=== PATIENT | male | born 1945 ===

== ENCOUNTER 2020-11-15 11:27 | Inpatient (IN) | payer OTHER ==
[~2020-11-15] VITALS: Ht 177.8 cm; Wt 75.4 kg
[~2020-11-15 11:27] MED LIST: ASPI81CH PO; Aspir 8181 MG PO; B-100 Complex1 EACH; B-121000 MC3 PO; CLOP75 PO; FOLI1 PO; HYDR1TAB94 PO; IBUP800 PO; MAGOXI400 PO; Metoprolol Tart25 MG PO; PRAV20 PO
[2020-11-15 12:07] LABS: BASOPHILS ABSOLUTE AUTO 0.04 K/mm3 (0.00-0.23); BASOPHILS PERCENT AUTO 0 % (0-2); EOSINOPHILS PERCENT AUTO 1 % (0-6); Hemoglobin 13.4 g/dL (13.5-17.5); IMMATURE GRAN ABSOLUTE AUTO 0.04 K/mm3 (0.00-0.10); IMMATURE GRAN PERCENT AUTO 0 % (0-1); LYMPHOCYTES ABSOLUTE AUTO 0.91 K/mm3 (0.84-5.20); LYMPHOCYTES PERCENT AUTO 10 % (21-46); MONOCYTES PERCENT AUTO 11 % (4-13); Mean Corpuscular HGB Conc 32.7 g/dL (31.5-36.5); Mean Corpuscular Volume 92 fL (80-100); NEUTROPHILS ABSOLUTE AUTO 7.42 K/mm3 (1.96-9.15); NEUTROPHILS PERCENT AUTO 78 % (41-73); Platelet Count 194 K/mm3 (150-400); RDW Coefficient Variation 13.5 % (11.7-14.2); RDW Standard Deviation 45.8 fL (35.1-46.3); Red Blood Cell Count 4.46 M/mm3 (4.30-5.90); White Blood Cell Count 9.51 K/mm3 (4.00-11.30)
[2020-11-15 12:40] LABS: Albumin, Blood 3.4 g/dL (3.4-5.0); Albumin/Globulin Ratio 0.8 (0.8-1.8); Bilirubin, Total 0.9 mg/dL (0.1-1.0); Bun/Creatinine Ratio 12.6 (12.0-20.0); Creatinine, Blood 1.9 mg/dL (0.60-1.20); Globulin, Blood 4.3 g/dL (2.2-4.0); Total Protein, Blood 7.7 g/dL (6.4-8.2)
[2020-11-15 12:47] LABS: Troponin I 1.89 ng/mL (0.000-0.040)
[2020-11-15] MEDS ORDERED: FOLI1 PO (13:07)
[2020-11-15] MEDS ORDERED: PRAVASTATIN SOD20 MG PO (13:07)
[2020-11-15] MEDS ORDERED: MAGNESIUM OXID500 MG PO (13:20)
[2020-11-15] MEDS ORDERED: ZYRTEC10 M2 PO (13:20)
[2020-11-15] MEDS ORDERED: CALCIUM 500 MG1 EAC2 PO (13:20)
[2020-11-15] MEDS ORDERED: OMEGA-3 FISH O1 EAC6 PO (13:21)
[2020-11-15 15:44] LABS: SARS-Cov-2 (COVID-19) PCR, MMC NEGATIVE (NEGATIVE)
[2020-11-15 16:19] LABS: International Normalized Ratio 1.11; Prothrombin Time Results 11.9 Sec (9.7-11.5)
--- NOTE | 2020-11-15 18:15 | NUR ---
SHIFT SUMMARY; ER ADMIT, TO ICU VIA GURNEY, TRANSFERS FROM GURNEY TO BED WITHOUT DIFFICULTY. DENIES CHEST PAIN OR SOB. A/A/OX4. NITRO STARTED PER EMAR AT 20MCG/MIN. NS INFUSING AT 100ML/HR. SPOUSE AT BEDSIDE. NPO PENDING ANGIO. VSS, WILL CONTINUE TO MONITOR UNTIL CHANGE OF SHIFT.
--- NOTE | 2020-11-15 20:20 | NUR ---
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 PT IS NOTED TO HAVE TR BAND IN PLACE TO RIGHT RADIAL ACCESS SITE WHICH IS STABLE WITHOUT EVIDENCE OF BLEEDING AT THIS TIME, PT DENIES NUMBNESS/TINGLING TO FINGERS AND THUMB OF RIGHT HAND, SKIN IS PINK, COOL, AND DRY, CAP REFILL IS 3 SECONDS, BIOX PROBE IN PLACE TO FINGERS OF RIGHT HAND, PLETH PRESENT. PT DENIES CURRENT CP/PRESSURE, DENIES SOB/DYSPNEA AT REST, DENIES N/V, ADMITS TO 9/10 LOW BACK PAIN WHICH HE STATES IS NEAR BASELINE FOR HIM AND PRESENT FOR YEARS. SINUS TACH NOTED ON MONITOR WITH OCCASIONAL PVCS, RATE 110S, PRESSURES ARE MAINTAINING WITH NITRO GTT AT 15 MCG/MIN, PULSES ARE FULL X 4 EXTREMITIES, NO EDEMA IS NOTED. LUNGS CLEAR THROUGHOUT, SATS LOW TO MID 90S ON ROOM AIR, NO VISIBLE INCREASED WORK OF BREATHING AT REST, SPEAKING IN FULL SENTENCES. ACTIVE BOWEL TONES X 4 QUADRANTS, PT STATES THAT HE IS QUITE HUNGRY HE HASN'T EATEN SINCE 1700 YESTERDAY, NO GRIMACING WITH PALPATION, ABD SOFT. NS INFUSING AT 200 ML/HR PER VERBAL ORDER FROM DR LRARY. SINGLE FIELD START IV ACCESS IS NOTED TO LEFT AC, SITE WNL, INFUSING NS AT NITRO GTT AT THIS TIME, DRESSING CDI, WILL PLAN TO START SECOND IV WITH NEXT LAB DRAW.
--- NOTE | 2020-11-15 20:30 | NUR ---
DR LARRY CALLED ICU TO ADVISE THAT PLAN IS TO TRANSFER PT TO [facility], ACCEPTING DR RICHARD SANCHEZ. WILL CALL [facility] FOR TRANSFER IMAGES, PRECISION GRINDER NOTIFIED OF PLAN. DR LARRY STATES THAT HE PLACED ORDERS TO DC NITRO GTT AND ADMINISTER IMDUR, OK FOR CARDIAC DIET TONIGHT.
[2020-11-15 21:39] LABS: International Normalized Ratio 1.24; Prothrombin Time Results 13.2 Sec (9.7-11.5)
--- NOTE | 2020-11-15 22:59 | NUR ---
TR BAND DEFLATION TR BAND DEFLATION STARTED AT 2207, 1 ML AIR REMOVED EVERY 5 MINUTES, DEFLATION IS COMPLETE AND SITE REMAINS STABLE AT THIS TIME, WILL CONTINUE FREQUENT MONITORING FOR EVIDENCE OF BLEEDING. SMALL HEMATOMA NOTED AT PUNCTURE SITE TO RIGHT AC HAS SMALL HEMATOMA, REMAINS WITHIN MARKED LINE SINCE ARRIVAL. WILL CONT TO MONITOR. TR BAND PRECAUTIONS FREQUENTLY REINFORCED WITH PT, ARM BOARD REMAINS IN PLACE.
[2020-11-15 23:29] LABS: Source, Urine Clean Catch
[2020-11-15 23:32] LABS: Bilirubin, Urine Neg (Neg); Blood, Urine 1+ (Neg); Glucose Qualitative, Urine Neg (Neg); Ketones, Urine 1+ (Neg); Leukocyte Esterase, Urine Neg (Neg); Nitrite, Urine Neg (Neg); Protein, Urine 2+ (Neg); Urobilinogen, Urine NORM (Normal); pH, Urine 6.5 (5.0-8.0)
[2020-11-15 23:33] LABS: Appearance, Urine Clear (Clear); Color, Urine Yellow (P-Yellow)
[2020-11-15 23:40] LABS: Bacteria Few /hpf; Red Blood Cells, Urine 0-2 /hpf (0-2); Squamous Epithelial Cells Not Seen /hpf (Few)
--- NOTE | 2020-11-16 00:24 | NUR ---
TR BAND REMOVAL RIGHT RADIAL ACCESS SITE CONTINUES STABLE, TR BAND REMOVED, WRIST CLEANSED WITH CHLORAPREP, AIR DRIED, AND TEGADERM DRESSING APPLIED. SITE NOTED TO HAVE SMALL AMOUNT OF CAPILLARY OOZING, NO SWELLING, PAIN, OR HEMATOMA FORMATION NOTED, TEGADERM DRESSING REMOVED, LIGHT PRESSURE HELD WITH STERILE 4X4 GAUZE X 50 SECONDS, CAPILLARY OOZING IS NOTED TO HAVE RESOLVED, TEGADERM DRESSING REPLACED, WILL CONT TO MONITOR CLOSELY.
[2020-11-16 06:09] LABS: BASOPHILS ABSOLUTE AUTO 0.04 K/mm3 (0.00-0.23); BASOPHILS PERCENT AUTO 1 % (0-2); EOSINOPHILS ABSOLUTE AUTO 0.29 K/mm3 (0.00-0.68); EOSINOPHILS PERCENT AUTO 3 % (0-6); Hematocrit 37.3 % (37.0-53.0); Hemoglobin 12.3 g/dL (13.5-17.5); IMMATURE GRAN ABSOLUTE AUTO 0.03 K/mm3 (0.00-0.10); IMMATURE GRAN PERCENT AUTO 0 % (0-1); LYMPHOCYTES ABSOLUTE AUTO 0.86 K/mm3 (0.84-5.20); LYMPHOCYTES PERCENT AUTO 10 % (21-46); MONOCYTES ABSOLUTE AUTO 0.76 K/mm3 (0.16-1.47); MONOCYTES PERCENT AUTO 9 % (4-13); Mean Corpuscular HGB 30.2 pg (26.0-34.0); Mean Corpuscular Volume 92 fL (80-100); Mean Platelet Volume 12.6 fL (9.1-12.4); NEUTROPHILS ABSOLUTE AUTO 6.43 K/mm3 (1.96-9.15); NEUTROPHILS PERCENT AUTO 77 % (41-73); Platelet Count 163 K/mm3 (150-400); RDW Coefficient Variation 13.4 % (11.7-14.2); RDW Standard Deviation 45.7 fL (35.1-46.3); Red Blood Cell Count 4.07 M/mm3 (4.30-5.90); White Blood Cell Count 8.41 K/mm3 (4.00-11.30)
--- NOTE | 2020-11-16 06:24 | NUR ---
PT RESTS QUIETLY THROUGHOUT SHIFT, CONTINUES TO DENY CP/PRESSURE, ADMITS TO SHORTNESS OF BREATH WITH INCREASED ACTIVITY ONLY. RIGHT RADIAL ACCESS SITE HAS REMAINED STABLE THROUGHOUT SHIFT, INITIALLY A SMALL AMOUNT OF CAPILLARY OOZING WAS NOTED UPON DISCONTINUATION OF TR BAND HOWEVER THIS RESOVED WITH 50 SECONDS OF PRESSURE HELD WITH STERILE 4X4 GAUZE. THERE IS A SMALL AREA OF BRUISING TO RIGHT AC THAT HAS BEEN PRESENT SINCE PT'S RETURN FROM [facility], THIS HAS REMAINED WITHIN THE MARKED OUTLINE ON THE CLEAR TEGADERM DRESSING. PT PRESSURE MAINTAINTS STABLE THROUGHOUT NOC, CONTINUES IN SINUS RHYTHM WITH OCCASIONAL PVCS, RATE HAS IMPROVED FROM 110S TO 90S AT THIS TIME. CONTINUES TO MAINTAIN SATS ON ROOM AIR AND SPEAK IN FULL SENTENCES WITHOUT VISIBLE INCREASED WORK OF BREATHING, RARE COUGH HAS BEEN NOTED. CONTINUE TO AWAIT TRANSFER TO [facility]
[2020-11-16 06:29] LABS: Alanine Aminotransfer (ALT/SGP 24 U/L (12-78); Albumin, Blood 3.1 g/dL (3.4-5.0); Albumin/Globulin Ratio 0.9 (0.8-1.8); Alk Phos 73 U/L (50-136); Anion Gap 8 mmol/L (6-16); Aspartate Aminotrans (AST/SGOT 23 U/L (12-37); Bilirubin, Total 0.6 mg/dL (0.1-1.0); Blood Urea Nitrogen 28 mg/dL (8-24); Bun/Creatinine Ratio 15.4 (12.0-20.0); CHOL/HDL RATIO 2.5; CO2, Blood 23 mmol/L (21-32); Calcium, Blood 8.4 mg/dL (8.5-10.1); Chloride, Blood 108 mmol/L (98-108); Cholesterol 145 mg/dL (50-200); Creatinine, Blood 1.82 mg/dL (0.60-1.20); Globulin, Blood 3.6 g/dL (2.2-4.0); Glomerular Filtration Rate 36 (60-); Glucose, Blood 107 mg/dL (70-99); HDL Cholesterol 57 mg/dL (>39); LDL/HDL RATIO 1.2; Low Density Lipoprotein Chol 68 mg/dL (0-110); Magnesium, Blood 2.4 mg/dL (1.6-2.4); Potassium, Blood 3.9 mmol/L (3.5-5.5); Sodium, Blood 139 mmol/L (136-145); Total Protein, Blood 6.7 g/dL (6.4-8.2); Triglycerides 99 mg/dL (30-160); Very Low Density Lipoprot Chol 19 mg/dL (6-32)
--- NOTE | 2020-11-16 08:10 | NUR ---
ASSUMED CARE / DR LARRY: REPORT RECEIVED FROM DEMETRIUS Ambrosio RN. ASSUMED CARE OF THIS PT AT APPROX 0700. ON ASSESSMENT, THE PT IS AWAKE, ALERT & ORIENTED TO ALL. HE STS HAVING 6/10 CP THAT FEELS "TIGHT" & IS CONSTANT. LS CLEAR T/O, PT ON RA W/ O2 SATS > 925. MONITOR SHOWS SR W/ OCCASIONAL PVCs, HR 80-90s, SBP 130-140s. PT HAS NO GI COMPLAINTS. VOIDS W/O DIFFICULTY USING URINAL, PER REPORT. SKIN CONDITION OVERALL CDI. ANGIOGRAM PUCTURE SITE TO R RADIAL IS WNL; NO BLEEDING, BRUISING OR HEMATOMA FORMATION NOTED. PUNCTURE SITE TO R BRACHIAL W/ TEGADERM IN PLACE, SMALL HEMATOMA NOTED UNDER DRESSING. HEMATOMA IMPROVED PER REPORT & IS NOW SOFT TO PALPATION, BRUISING HAS SPREAD SLIGHTLY OUTSIDE OF MARKED AREA. CALL TO DR LARRY REGARDING PT's CURRENT 6/10 CP. ORDERS PLACED FOR NITROGLYCERIN DRIP, ONE TIME DOSE OF IV ATIVAN, ONE TIME DOSE OF IV METOPROLOL. PROVIDER STS OKAY FOR PT TO HAVE SCHEDULED PO DOSE OF METOPROLOL THIS AM ALSO. WILL CONTINUE TO MONITOR & UPDATE NEEDED.
[2020-11-16 12:31] LABS: Source, Urine Catheter
--- NOTE | 2020-11-16 12:45 | NUR ---
COBRA TRANSFER[facility] IS NOW A BED AVAILABLE FOR THE PT. THE BED ASSIGNED IS [id number]. TRANSPORT HAS BEEN CONTACTED & ARRIVED AT 1210 TO TAKE PT VIA GROUND. THE PT's HAS BEEN NOTIFIED OF TRANSFER TIME. PT OUT OF UNIT AT 1225. BELONGINGS & TRANSFER PACKET HAVE BEEN TAKEN OUT W/ PT AT THAT TIME. HEPARIN INFUSING AT 14 U/KG/HR & NITROGLYCERIN INFUSING AT 10 MCG/MIN. PARAMEDICS UPDATED ON TITRATION & PARAMETERS FOR NITROGLYCERIN DRIP. THIS RN HAS GIVEN REPORT TO THANH ZAPATA TO ASSUME CARE AT [facility].
[2020-11-16 12:50] LABS: Appearance, Urine Clear (Clear); Bilirubin, Urine Neg (Neg); Blood, Urine 1+ (Neg); Color, Urine Yellow (P-Yellow); Glucose Qualitative, Urine Neg (Neg); Ketones, Urine Neg (Neg); Leukocyte Esterase, Urine Neg (Neg); Nitrite, Urine Neg (Neg); Protein, Urine 2+ (Neg); Urobilinogen, Urine NORM (Normal); pH, Urine 6.5 (5.0-8.0)
[2020-11-16 13:13] LABS: Bacteria Not Seen /hpf; Red Blood Cells, Urine 0-2 /hpf (0-2); Squamous Epithelial Cells Not Seen /hpf (Few); White Blood Cells, Urine Not Seen /hpf (0-5)
== END 2020-11-16 12:20 | disposition short-term general hospital (02) | DRG 281 ==
LOC: ER 11:27 → ICUW 14:07
PROVIDERS: Emergency Medicine; Internal Medicine; Internal Medicine Cardiovascular Disease; Nurse Practitioner Acute Care; Pharmacist; ADMIT Family Medicine
PROC: 4A023N7 Measurement of Cardiac Sampling and Pressure, Left Heart, Percutaneous Approach (ICD-10-PCS; principal; 2020-11-15)
PROC: B2111ZZ Fluoroscopy of Multiple Coronary Arteries using Low Osmolar Contrast (ICD-10-PCS; 2020-11-15)
DX: I21.4 Non-ST elevation (NSTEMI) myocardial infarction (principal); I13.0 Hypertensive heart and chronic kidney disease with heart failure and stage 1 through stage 4 chronic kidney disease, or unspecified chronic kidney disease; Z20.822 Contact with and (suspected) exposure to COVID-19; I25.10 Atherosclerotic heart disease of native coronary artery without angina pectoris; I73.9 Peripheral vascular disease, unspecified; E78.5 Hyperlipidemia, unspecified; N18.30 Chronic kidney disease, stage 3 unspecified; I50.9 Heart failure, unspecified; R73.9 Hyperglycemia, unspecified; J44.9 Chronic obstructive pulmonary disease, unspecified; Z86.73 Personal history of transient ischemic attack (TIA), and cerebral infarction without residual deficits; Z79.82 Long term (current) use of aspirin; Z79.899 Other long term (current) drug therapy; Z88.8 Allergy status to other drugs, medicaments and biological substances; Z98.890 Other specified postprocedural states
CPT/HCPCS: 36415; 71046; 80053; 80061; 81001; 83036; 83735; 83880; 84100; 84484; 85025; 85610; 85730; 86850; 86900; 86901; 93005; 93010; 93460; 99152; 99153; 99285-25; A9270; C1769; C1894; C8929; J1644; J2060; J2250; J3010; J7030; Q9957; Q9967; U0004

== ENCOUNTER → 2022-04-07 | Outpatient (CLI) | payer MEDICARE, BC ==
[~2022-04-07] MED LIST changes: +CALCIUM 500 MG1 EAC2 PO; +MAGNESIUM OXID500 MG PO; +OMEGA-3 FISH O1 EAC6 PO; +PRAVASTATIN SOD20 MG PO; +ZYRTEC10 M2 PO
[2022-04-07 19:49] LABS: BASOPHILS ABSOLUTE AUTO 0.05 K/mm3 (0.00-0.23); BASOPHILS PERCENT AUTO 1 % (0-2); EOSINOPHILS ABSOLUTE AUTO 0.27 K/mm3 (0.00-0.68); EOSINOPHILS PERCENT AUTO 4 % (0-6); Hematocrit 44.6 % (37.0-53.0); IMMATURE GRAN ABSOLUTE AUTO 0.03 K/mm3 (0.00-0.10); IMMATURE GRAN PERCENT AUTO 0 % (0-1); LYMPHOCYTES ABSOLUTE AUTO 1.37 K/mm3 (0.84-5.20); LYMPHOCYTES PERCENT AUTO 19 % (21-46); MONOCYTES ABSOLUTE AUTO 0.79 K/mm3 (0.16-1.47); MONOCYTES PERCENT AUTO 11 % (4-13); Mean Corpuscular HGB 29.6 pg (26.0-34.0); Mean Corpuscular HGB Conc 33.6 g/dL (31.5-36.5); Mean Corpuscular Volume 88 fL (80-100); Mean Platelet Volume 11.2 fL (9.1-12.4); NEUTROPHILS ABSOLUTE AUTO 4.71 K/mm3 (1.96-9.15); NEUTROPHILS PERCENT AUTO 65 % (41-73); Platelet Count 203 K/mm3 (150-400); RDW Coefficient Variation 13.2 % (11.7-14.2); Red Blood Cell Count 5.06 M/mm3 (4.30-5.90); White Blood Cell Count 7.22 K/mm3 (4.00-11.30)
[2022-04-07 20:02] LABS: Albumin, Blood 3.7 g/dL (3.4-5.0); Albumin/Globulin Ratio 1.1 (0.8-1.8); Bilirubin, Total 0.6 mg/dL (0.1-1.0); Bun/Creatinine Ratio 12.3 (12.0-20.0); Calcium, Blood 8.9 mg/dL (8.5-10.1); Creatinine, Blood 1.62 mg/dL (0.60-1.20); Globulin, Blood 3.5 g/dL (2.2-4.0); Thyroid Stimulating Hormone 0.881 uIU/mL (0.360-4.800); Total Protein, Blood 7.2 g/dL (6.4-8.2)
== END ==
LOC: LAB SHORT 19:07 → LAB 19:07
PROVIDERS: Family Medicine
DX: I95.9 Hypotension, unspecified (principal); Z79.899 Other long term (current) drug therapy
CPT/HCPCS: 80053; 84443; 85025

== ENCOUNTER → 2022-05-18 | Outpatient (CLI) | payer MEDICARE, BC ==
[2022-05-18 19:48] LABS: Bun/Creatinine Ratio 14.1 (12.0-20.0); Calcium, Blood 8.7 mg/dL (8.5-10.1); Creatinine, Blood 1.49 mg/dL (0.60-1.20); Potassium, Blood 3.8 mmol/L (3.5-5.5)
== END | disposition home or self-care (01) ==
LOC: LAB SHORT 11:00 → LAB 11:00
PROVIDERS: Family Medicine
DX: Z51.81 Encounter for therapeutic drug level monitoring (principal); Z79.899 Other long term (current) drug therapy
CPT/HCPCS: 80048; 83735

== ENCOUNTER → 2022-12-05 | Outpatient (CLI) | payer OTHER ==
[2022-12-05 19:59] LABS: Albumin, Blood 3.8 g/dL (3.4-5.0); Alk Phos 125 U/L (50-136); Anion Gap 5 mmol/L (6-16); Aspartate Aminotrans (AST/SGOT 22 U/L (12-37); Blood Urea Nitrogen 21 mg/dL (8-24); Bun/Creatinine Ratio 14.3 (12.0-20.0); CHOL/HDL RATIO 1.5; CO2, Blood 28 mmol/L (21-32); Calcium, Blood 9.2 mg/dL (8.5-10.1); Chloride, Blood 105 mmol/L (98-108); Cholesterol 114 mg/dL (50-200); Creatinine, Blood 1.47 mg/dL (0.60-1.20); Globulin, Blood 3.7 g/dL (2.2-4.0); Glomerular Filtration Rate 49 (60-); Glucose, Blood 95 mg/dL (70-99); HDL Cholesterol 78 mg/dL (>39); LDL/HDL RATIO 0.3; Low Density Lipoprotein Chol 21 mg/dL (0-110); Potassium, Blood 3.7 mmol/L (3.5-5.5); Sodium, Blood 138 mmol/L (136-145); Total Protein, Blood 7.5 g/dL (6.4-8.2); Triglycerides 73 mg/dL (30-160); Very Low Density Lipoprot Chol 14 mg/dL (6-32)
[2022-12-05 20:30] LABS: Alanine Aminotransfer (ALT/SGP 30 U/L (12-78)
== END | disposition home or self-care (01) ==
LOC: LAB 16:08 → LAB SHORT 16:08
PROVIDERS: Family Medicine
DX: E11.9 Type 2 diabetes mellitus without complications (principal); E78.5 Hyperlipidemia, unspecified; E53.8 Deficiency of other specified B group vitamins; L08.9 Local infection of the skin and subcutaneous tissue, unspecified
CPT/HCPCS: 80053; 80061; 82607; 82746; 83036; 87070; 87077; 87186; 87205

== ENCOUNTER → 2023-02-01 | Outpatient (CLI) | payer OTHER ==
[2023-02-01 19:04] LABS: BASOPHILS ABSOLUTE AUTO 0.04 K/mm3 (0.00-0.23); BASOPHILS PERCENT AUTO 0 % (0-2); EOSINOPHILS ABSOLUTE AUTO 0.28 K/mm3 (0.00-0.68); EOSINOPHILS PERCENT AUTO 3 % (0-6); Hematocrit 33.3 % (37.0-53.0); Hemoglobin 11.5 g/dL (13.5-17.5); IMMATURE GRAN ABSOLUTE AUTO 0.04 K/mm3 (0.00-0.10); IMMATURE GRAN PERCENT AUTO 0 % (0-1); LYMPHOCYTES ABSOLUTE AUTO 1.12 K/mm3 (0.84-5.20); LYMPHOCYTES PERCENT AUTO 12 % (21-46); MONOCYTES ABSOLUTE AUTO 1.02 K/mm3 (0.16-1.47); MONOCYTES PERCENT AUTO 11 % (4-13); Mean Corpuscular HGB 30.5 pg (26.0-34.0); Mean Corpuscular HGB Conc 34.5 g/dL (31.5-36.5); Mean Corpuscular Volume 88 fL (80-100); Mean Platelet Volume 12.8 fL (9.1-12.4); NEUTROPHILS ABSOLUTE AUTO 7.14 K/mm3 (1.96-9.15); NEUTROPHILS PERCENT AUTO 74 % (41-73); Platelet Count 202 K/mm3 (150-400); RDW Coefficient Variation 14.6 % (11.7-14.2); RDW Standard Deviation 46.9 fL (35.1-46.3); Red Blood Cell Count 3.77 M/mm3 (4.30-5.90); White Blood Cell Count 9.64 K/mm3 (4.00-11.30)
== END ==
LOC: LAB SHORT 09:53 → LAB 09:53
PROVIDERS: Family Medicine
DX: S40.022A Contusion of left upper arm, initial encounter (principal)
CPT/HCPCS: 85025

== ENCOUNTER → 2023-02-20 | Outpatient (CLI) | payer OTHER ==
[2023-02-20 21:00] LABS: BASOPHILS ABSOLUTE AUTO 0.04 K/mm3 (0.00-0.23); BASOPHILS PERCENT AUTO 1 % (0-2); EOSINOPHILS ABSOLUTE AUTO 0.21 K/mm3 (0.00-0.68); EOSINOPHILS PERCENT AUTO 4 % (0-6); Hematocrit 40.6 % (37.0-53.0); Hemoglobin 13.1 g/dL (13.5-17.5); IMMATURE GRAN ABSOLUTE AUTO 0.03 K/mm3 (0.00-0.10); IMMATURE GRAN PERCENT AUTO 1 % (0-1); LYMPHOCYTES ABSOLUTE AUTO 1.19 K/mm3 (0.84-5.20); LYMPHOCYTES PERCENT AUTO 21 % (21-46); MONOCYTES ABSOLUTE AUTO 0.68 K/mm3 (0.16-1.47); MONOCYTES PERCENT AUTO 12 % (4-13); Mean Corpuscular HGB 30.4 pg (26.0-34.0); Mean Corpuscular HGB Conc 32.3 g/dL (31.5-36.5); Mean Corpuscular Volume 94 fL (80-100); Mean Platelet Volume 12.2 fL (9.1-12.4); NEUTROPHILS ABSOLUTE AUTO 3.52 K/mm3 (1.96-9.15); NEUTROPHILS PERCENT AUTO 62 % (41-73); Platelet Count 219 K/mm3 (150-400); RDW Coefficient Variation 16.1 % (11.7-14.2); RDW Standard Deviation 56.2 fL (35.1-46.3); Red Blood Cell Count 4.31 M/mm3 (4.30-5.90); White Blood Cell Count 5.67 K/mm3 (4.00-11.30)
[2023-02-20 21:10] LABS: Albumin, Blood 3.4 g/dL (3.4-5.0); Albumin/Globulin Ratio 0.9 (0.8-1.8); Bilirubin, Total 0.6 mg/dL (0.1-1.0); Bun/Creatinine Ratio 13.6 (12.0-20.0); Creatinine, Blood 1.25 mg/dL (0.60-1.20); Globulin, Blood 3.7 g/dL (2.2-4.0); Potassium, Blood 3.9 mmol/L (3.5-5.5); Total Protein, Blood 7.1 g/dL (6.4-8.2)
[2023-02-20 22:04] LABS: Creatinine, Urine Random 59.4 mg/dL (27.00-270.00); Microalbumin, Random Urine 32.2 mg/L (0.000-20.000)
== END | disposition home or self-care (01) ==
LOC: LAB 20:27 → LAB SHORT 20:27
PROVIDERS: Family Medicine
DX: N18.30 Chronic kidney disease, stage 3 unspecified (principal)
CPT/HCPCS: 80053; 82043; 82570; 85025